=== PATIENT | female | born 1960 | race Hispanic/Latino ===

== ENCOUNTER 2019-02-18 09:47 | Day surgery (SDC) | payer BC ==
[~2019-02-18] VITALS: Ht 152.4 cm; Wt 58.1 kg
[~2019-02-18 09:47] MED LIST: ADVIL MIGRAI200 M1 PO; MORINGA; RANITIDINE HYD150 MG PO; SLEEP; UNISOM SLEEP25 MG PO
[2019-02-18 11:59] VITALS: BP 116/81
== END 2019-02-18 12:15 | disposition home or self-care (01) | DRG 951 ==
LOC: ENDO 09:47
PROVIDERS: ATTEND Surgery
PROC: 0DJD8ZZ Inspection of Lower Intestinal Tract, Via Natural or Artificial Opening Endoscopic (ICD-10-PCS; principal; 2019-02-18)
DX: Z12.11 Encounter for screening for malignant neoplasm of colon (principal)